=== PATIENT | female | born 1935 | race Caucasian/White ===

== ENCOUNTER 2023-01-15 09:28 | Observation (INO) | payer MEDICARE ==
[2023-01-15 10:32] LABS: Appearance Clear (Clear); Bilirubin Negative (Negative); Blood Small (Negative); Glucose, Urine Negative (Negative); Ketones Negative (Negative); Leukocyte Esterase Trace (Negative); Nitrite Negative (Negative); Protein,Urine Dip Negative (Negative); Urobilinogen 0.2 mg/dL (0.2)
[2023-01-15 10:32] LABS: Absolute Neutrophil Ct (ANC) 3.64 x10^3/uL (1.4-6.9); BASOPHIL % 1.9 % (0.0-0.4); Basophil (Absolute #) 0.13 x10^3/uL (0-0.4); Eosinophil % 4.8 % (0.00-5.0); Eosinophil (Absolute #) 0.33 x10^3/uL (0-0.5); Hematocrit 37.2 % (35-47); Hemoglobin 12.1 g/dL (12.0-16.0); IMMATURE GRAN # 0.03 x10^3u/L (0.00-0.03); IMMATURE GRAN % 0.4 % (0.00-0.4); Lymphocyte (Absolute #) 2.18 x10^3/uL (1.0-4.6); Mean Cell Volume 89.4 fL (78-100); Mean Corpuscular Hemoglobin 29.1 pg (26-32); Mean Corpuscular Hgb Concent. 32.5 g/dL (32-36); Mean Platelet Volume 10.8 fL (7.5-11.0); Monocytes % 7.3 % (0.0-12.0); Neutrophil % 53.6 % (36.0-66.0); Platelet Count 232 x10^3/uL (150-450); Red Blood Count 4.16 x10^6/uL (4.1-5.4); Red Cell Distribution Width 13.7 % (11.5-14.0); White Blood Count 6.8 x10^3/uL (4.0-10.5)
[2023-01-15 10:44] LABS: ALBUMIN 4.1 g/dL (3.5-5.0); ALKALINE PHOSPHATASE 71 U/L (38-126); BLOOD UREA NITROGEN 20 mg/dL (7-17); CHLORIDE 106 mmol/L (98-107); Calcium 9.2 mg/dL (8.4-10.2); Carbon Dioxide 25 mmol/L (22-30); Creatinine 1 0.87 mg/dL (0.52-1.04); EST GLOMERULAR FILTRATION RATE > 60.0 ML/MIN; Glucose 91 mg/dL (74-106); Potassium 4.3 mmol/L (3.5-5.1); SGOT/AST 21 U/L (14-36); SGPT/ALT 19 U/L (0-35); SODIUM 140 mmol/L (137-145); Total Protein 7.3 g/dL (6.3-8.2)
[2023-01-15 10:44] LABS: ADD URINE CULTURE? YES (NO); Bacteria Rare /HPF (None Seen); Epithelial Cells None Seen /HPF (None Seen); RBC 0-2 /HPF (0-5)
--- NOTE | 2023-01-15 11:35 | ERPHSYRPT ---
- History of Present Illness Time Seen by Provider: 01/15/23 10:00 Source: patient Exam Limitations: no limitations Patient Subjective Stated Complaint: C/O blood pressure fluctuations for the past few days. Denies pain or SOB. State B/P is high today and she has had some pounding/ringing in her ears. Triage Nursing Assessment: Patient ambulated back to ER without difficulties. She is alert and oriented. No SOB. NO cough. Skin tone normal. Bandaid noted to LL anterior leg; patient states she dropped something on it a few days ago. No edema noted. CLEARY WNL/ Physician History: Patient 37-year-old female presents to our ED for evaluation of fluctuating blood pressure and intermittent headache. Patient has not seen a primary care doctor in over 5 years. Patient's last doctor was Dr. Jordan Maria. Patient has not followed up with anybody since. No associated nausea vomiting or diaphoresis. No chest pain or shortness of breath. Patient does not take any medications to speak of. Patient states she takes [id number] magnesium. Daughter at bedside. They voiced no other complaints or concerns at this time. Portions of this note were created with voice recognition technology. There may be grammatical, spelling, punctuation or sound alike errors Timing/Duration: today Severity: moderate Modifying Factors: Improves With: nothing Associated Symptoms: denies symptoms Allergies/Adverse Reactions: erythromycin base [Erythromycin Base] Allergy (Verified 01/15/23 09:40) Sulfa (Sulfonamide Antibiotics) [Sulfa(Sulfonamide Antibiotics)] Allergy (Verified 01/15/23 09:40) Home Medications: Ibuprofen/Diphenhydramine Cit [Advil Pm Caplet] 2 tab PO HS 01/15/23 [History] Magnesium Oxide 400 mg [Mag-Ox 400] 1 tab PO HS 01/15/23 [History] Hx Tetanus, Diphtheria Vaccination/Date Given: Yes Hx Influenza Vaccination/Date Given: No Hx Pneumococcal Vaccination/Date Given: Yes Immunizations Up to Date: Yes Travel Risk - International Travel Have you traveled outside of the country in past 3 weeks: No - Coronavirus Screening Are you exhibiting any of the following symptoms?: No Close contact with a COVID-19 positive Pt in past 14-21 Days: No - Vaccine Status Have you recieved a Covid-19 vaccination: Yes Glass Sander: Moderna - Vaccination Dates Date of 2cond Vaccination (if applicable): ? - Review of Systems Constitutional: No Symptoms, No Fever, No Chills Eyes: No Symptoms Ears, Nose, & Throat: No Symptoms Respiratory: No Symptoms, No Cough, No Dyspnea Cardiac: No Symptoms, No Chest Pain, No Edema, No Syncope Abdominal/Gastrointestinal: No Symptoms, No Abdominal Pain, No Nausea, No Vomiting, No Diarrhea Genitourinary Symptoms: No Symptoms, No Dysuria Musculoskeletal: No Symptoms, No Back Pain, No Neck Pain Skin: No Symptoms, No Rash Neurological: No Symptoms, No Dizziness, No Focal Weakness, No Sensory Changes Psychological: No Symptoms Endocrine: No Symptoms Hematologic/Lymphatic: No Symptoms Immunological/Allergic: No Symptoms All Other Systems: Reviewed and Negative - Past Medical History Pertinent Past Medical History: Yes Neurological History: No Pertinent History ENT History: No Pertinent History Cardiac History: No Pertinent History Respiratory History: No Pertinent History Endocrine Medical History: Thyroid Cancer Musculoskeletal History: Osteoarthritis GI Medical History: Hemorrhoids Psycho-Social History: Other Female Reproductive Disorders: No Pertinent History Other Medical History: taken ativan 2mg at HS for 8 years "to help me sleep" - Past Surgical History Past Surgical History: Yes Neuro Surgical History: No Pertinent History Cardiac: No Pertinent History Gastrointestinal: No Pertinent History Genitourinary: No Pertinent History Female Surgical History: Hysterectomy Other Surgical History: Partial thyroidectomy - Social History Smoking Status: Never smoker Exposure to second hand smoke: No Drug Use: none Patient Lives Alone: No - Nursing Vital Signs Nursing Vital Signs: Initial Vital Signs Temperature 98 F 01/15/23 09:43 Pulse Rate 91 H 01/15/23 09:43 Respiratory Rate 18 01/15/23 09:43 Blood Pressure 201/76 01/15/23 09:43 O2 Sat by Pulse Oximetry 99 01/15/23 09:43 Pain Scale Pain Intensity 0 - Physical Exam General Appearance: no apparent distress, alert Eye Exam: PERRL/EOMI, eyes nml inspection Ears, Nose, Throat Exam: normal ENT inspection, TMs normal, pharynx normal, moist mucous membranes Neck Exam: normal inspection, non-tender, supple, full range of motion Respiratory Exam: normal breath sounds, lungs clear, airway intact, No respiratory distress Cardiovascular Exam: regular rate/rhythm, normal heart sounds, normal peripheral pulses Gastrointestinal/Abdomen Exam: soft, normal bowel sounds, No tenderness, No mass Back Exam: normal inspection, normal range of motion, No CVA tenderness, No vertebral tenderness Extremity Exam: normal inspection, normal range of motion, pelvis stable Neurologic Exam: alert, oriented x 3, cooperative, normal mood/affect, nml cerebellar function, nml station & gait, sensation nml, No motor deficits Skin Exam: normal color, warm, dry, No rash Lymphatic Exam: No adenopathy SpO2 Interpretation: normal SpO2: 100 O2 Delivery: Room Air - Course Nursing assessment & vital signs reviewed: Yes EKG Interpreted by Me: RATE (81, left bundle branch block T wave inversion), Sinus Rhythm, NORMAL AXIS, NORMAL INTERVALS, Left Bundle Branch Block Ordered Tests: Active Orders 24 hr Category Date Time Status CBC W DIFF Stat Lab 01/15/23 10:25 Completed CMP Stat Lab 01/15/23 10:25 Completed CULTURE,URINE Stat Lab 01/15/23 10:07 Received TROPONIN Q4H Lab 01/15/23 10:25 Completed TROPONIN Q4H Lab 01/15/23 14:15 Ordered TROPONIN Q4H Lab 01/15/23 18:15 Ordered TROPONIN Q4H Lab 01/15/23 22:15 Ordered UA W/RFX UR CULTURE Stat Lab 01/15/23 10:07 Completed Transfer Order Routine Transfer 01/15/23 Ordered Lab/Rad Data: Laboratory Result Diagrams 01/15/23 10:25 01/15/23 10:25 Laboratory Results 01/15/23 01/15/23 01/15/23 Range/Units 12:00 10:25 10:25 WBC (4.0-10.5) x10^3/uL RBC (4.1-5.4) x10^6/uL Hgb (12.0-16.0) g/dL Hct (35-47) % MCV (78-100) fL MCH (26-32) pg MCHC (32-36) g/dL RDW (11.5-14.0) % Plt Count (150-450) x10^3/uL MPV (7.5-11.0) fL Gran % (36.0-66.0) % Immature Gran % (Auto) (0.00-0.4) % Nucleat RBC Rel Count (0.00-0.1) % Eos # (Auto) (0-0.5) x10^3/uL Immature Gran # (Auto) (0.00-0.03) x10^3u/L Absolute Lymphs (auto) (1.0-4.6) x10^3/uL Absolute Monos (auto) (0.0-1.3) x10^3/uL Absolute Nucleated RBC (0.00-0.01) x10^3u/L Lymphocytes % (24.0-44.0) % Monocytes % (0.0-12.0) % Eosinophils % (0.00-5.0) % Basophils % (0.0-0.4) % Absolute Granulocytes (1.4-6.9) x10^3/uL Basophils # (0-0.4) x10^3/uL Sodium 140 (137-145) mmol/L Potassium 4.3 (3.5-5.1) mmol/L Chloride 106 (98-107) mmol/L Carbon Dioxide 25 (22-30) mmol/L Anion Gap 13.0 (5-15) MEQ/L BUN 20 H (7-17) mg/dL Creatinine 0.87 (0.52-1.04) mg/dL Estimated GFR > 60.0 ML/MIN Glucose 91 (74-106) mg/dL Calcium 9.2 (8.4-10.2) mg/dL Total Bilirubin 0.70 (0.2-1.3) mg/dL AST 21 (14-36) U/L ALT 19 (0-35) U/L Alkaline Phosphatase 71 (38-126) U/L Troponin I 0.021 (0.000-0.034) ng/mL Serum Total Protein 7.3 (6.3-8.2) g/dL Albumin 4.1 (3.5-5.0) g/dL Urine Color (Yellow) Urine Appearance (Clear) Urine pH (4.6-8.0) Ur Specific [place] (1.005-1.030) Urine Protein (Negative) Urine Glucose (UA) (Negative) mg/dL Urine Ketones (Negative) Urine Blood (Negative) Urine Nitrite (Negative) Urine Bilirubin (Negative) Urine Urobilinogen (0.2) mg/dL Ur Leukocyte Esterase (Negative) Urine Microscopic RBC (0-5) /HPF Urine Microscopic WBC (0-5) /HPF Ur Epithelial Cells (None Seen) /HPF Urine Bacteria (None Seen) /HPF Urine Culture Reflexed (NO) Influenza Type A Ag NEGATIVE (NEGATIVE) Influenza Type B Ag NEGATIVE (NEGATIVE) RSV (PCR) NEGATIVE (NEGATIVE) SARS-CoV-2 (PCR) NEGATIVE (NEGATIVE) 01/15/23 01/15/23 Range/Units 10:25 10:07 WBC 6.8 (4.0-10.5) x10^3/uL RBC 4.16 (4.1-5.4) x10^6/uL Hgb 12.1 (12.0-16.0) g/dL Hct 37.2 (35-47) % MCV 89.4 (78-100) fL MCH 29.1 (26-32) pg MCHC 32.5 (32-36) g/dL RDW 13.7 (11.5-14.0) % Plt Count 232 (150-450) x10^3/uL MPV 10.8 (7.5-11.0) fL Gran % 53.6 (36.0-66.0) % Immature Gran % (Auto) 0.4 (0.00-0.4) % Nucleat RBC Rel Count 0.0 (0.00-0.1) % Eos # (Auto) 0.33 (0-0.5) x10^3/uL Immature Gran # (Auto) 0.03 (0.00-0.03) x10^3u/L Absolute Lymphs (auto) 2.18 (1.0-4.6) x10^3/uL Absolute Monos (auto) 0.50 (0.0-1.3) x10^3/uL Absolute Nucleated RBC 0.00 (0.00-0.01) x10^3u/L Lymphocytes % 32.0 (24.0-44.0) % Monocytes % 7.3 (0.0-12.0) % Eosinophils % 4.8 (0.00-5.0) % Basophils % 1.9 (0.0-0.4) % Absolute Granulocytes 3.64 (1.4-6.9) x10^3/uL Basophils # 0.13 (0-0.4) x10^3/uL Sodium (137-145) mmol/L Potassium (3.5-5.1) mmol/L Chloride (98-107) mmol/L Carbon Dioxide (22-30) mmol/L Anion Gap (5-15) MEQ/L BUN (7-17) mg/dL Creatinine (0.52-1.04) mg/dL Estimated GFR ML/MIN Glucose (74-106) mg/dL Calcium (8.4-10.2) mg/dL Total Bilirubin (0.2-1.3) mg/dL AST (14-36) U/L ALT (0-35) U/L Alkaline Phosphatase (38-126) U/L Troponin I (0.000-0.034) ng/mL Serum Total Protein (6.3-8.2) g/dL Albumin (3.5-5.0) g/dL Urine Color Yellow (Yellow) Urine Appearance Clear (Clear) Urine pH 5.0 (4.6-8.0) Ur Specific [place] 1.010 (1.005-1.030) Urine Protein Negative (Negative) Urine Glucose (UA) Negative (Negative) mg/dL Urine Ketones Negative (Negative) Urine Blood Small A (Negative) Urine Nitrite Negative (Negative) Urine Bilirubin Negative (Negative) Urine Urobilinogen 0.2 (0.2) mg/dL Ur Leukocyte Esterase Trace A (Negative) Urine Microscopic RBC 0-2 (0-5) /HPF Urine Microscopic WBC 3-5 (0-5) /HPF Ur Epithelial Cells None Seen (None Seen) /HPF Urine Bacteria Rare A (None Seen) /HPF Urine Culture Reflexed YES (NO) Influenza Type A Ag (NEGATIVE) Influenza Type B Ag (NEGATIVE) RSV (PCR) (NEGATIVE) SARS-CoV-2 (PCR) (NEGATIVE) - Progress Progress: improved Progress Note: Patient is a 87-year-old female presents to our ED for evaluation of hypertension. Patient checked her blood pressure she felt pressure in her head and her ears. Patient has not seen a primary care doctor in over 5 years. Patient's last physician was Dr. Jordan Maria. Patient presents today with abnormal EKG which shows a left bundle branch block and T wave inversions. As far as we know these findings are new. Patient's last EKG was in 2011 which revealed a normal sinus rhythm with no such abnorma lities. Patient denies any significant past medical history. Patient's complaint is acute. Patient's neurologic exam is normal.. Plexi of problem addressed is moderate. The diagnosis is new with uncertain prognosis. Patient has high blood pressure with systemic manifestations of intermittent headache and ringing in her ears. Age gender, PMH/PQ , (co-morbidities that complicate presentation) , med class, PSH, (smoker) method of arrival, CC (acute, chronic or acute on chronic), State COPA level and why or if critical. vitals, Significant ROS/PE findings, working diagnoses, No critical care time. Complexity of data reviewed and analyzed is moderate. Patient served as independent historian however daughter at bedside provided significant information towards HPI. Test ordered and test reviewed. Case discussed with Dr. Quintana who accepts admission to observation. Patient inquired about Dr. Medina as she has family friends at recommend Dr. Medina. However we contacted Dr. Medina's office and Dr. Medina is not taking new patients at this time. Patient's troponin is within normal limits however elevated as compared to baseline. Risk of complication and or morbidity/mortality of patient management is minimal. Patient's blood pressure was observed. We did not administer medication for management. We will continue to observe blood pressure as it was steadily downtrending. Plan of care discussed with patient and her son who is at bedside. Patient's daughter left the room. Patient agrees to admission [facility] for further evaluation and treatment. Plan of care was achieved based on shared decision making model. She voices no other complaints or concerns at this time. Portions of this note were created with voice recognition technology. There may be grammatical, spelling, punctuation or sound alike errors 01/15/23 12:36 Counseled pt/family regarding: lab results, diagnosis, rad results - Departure Departure Disposition: Observation (hypertension) Clinical Impression: Hypertension, LBBB (left bundle branch block), Abnormal EKG Condition: Stable Critical Care Time: No Referrals: DOCTOR,NO FAMILY [Primary Care Provider] - Follow up/PCP as directed
[2023-01-15 12:22] LABS: INFLUENZA A NEGATIVE (NEGATIVE); INFLUENZA B NEGATIVE (NEGATIVE); RESPIRATORY SYNCTIAL VIRUS NEGATIVE (NEGATIVE); SARS-CoV-2 Xpert Express NEGATIVE (NEGATIVE)
[2023-01-15] MEDS ORDERED: Senokot-S Tablet PO PRN (12:43)
[2023-01-15] MEDS ORDERED: Zofran 4 MG/2 ML VIAL IV PRN (12:43)
[2023-01-15] MEDS ORDERED: MILK OF MAGNESIA 30 ML PO PRN (12:43)
[2023-01-15] MEDS ORDERED: TYLENOL 325 MG PO PRN (12:43)
[2023-01-15] MEDS ORDERED: MAALOX ES 30 ML UNIT DOSE PO PRN (12:43)
[2023-01-15] MEDS: APRESOLINE 20 MG/ML INJ IV PRN (18:48)
[2023-01-15] MEDS: MAG-OX 400 PO SCH (23:24)
[2023-01-16 06:19] LABS: Risk Ratio 7.1
[2023-01-16] MEDS: APRESOLINE 20 MG/ML INJ IV PRN (06:44)
[2023-01-16] MEDS ORDERED: BENADRYL 25 MG CAPSULE PO PRN (12:11)
[2023-01-16] MEDS: NORVASC 5 MG PO SCH (12:54)
--- NOTE | 2023-01-16 14:53 | PCM.HP ---
History of Present Illness - Chief Complaint Chief Complaint: ACS, abnormal EKG History of Present Illness: is a 87 year old female with no MD whatsoever who was admitted through ER with Hypertensive emergency and EKG changes. Workup to r/o WI was started. Her BP was >210 systolic initially. Troponins have been neg x 3. EKG had new LBBB compared with last EKG (from 2011). She was most recently a pt of Dr. Jordan Morrison, about 5 years ago, and hasn't been seen by a doctor since then. She started having pressure in her head and ringing in her ears the past 2-3d; BP have been up and down since then (133/50-178/80-90, she says). Apparently she took a BP med about 20 yrs ago but her bp improved and she stopped it. She has required IV hydralazine x2 since admission, for BP > 180 systolic. She lives with her son, daughter, and granddaughter. Still drives, does her own cooking and checkbook. - Review of Systems Cardiac: Edema (occ, LE) Neurological: Headache, Other (tinnitus) Psychological: Anxiety All Other Systems: Reviewed and Negative Medications & Allergies Home Medications: Home Medication List Ibuprofen/Diphenhydramine Cit [Advil Pm Caplet] 2 tab PO HS 01/15/23 [History Confirmed 01/15/23] Magnesium Oxide 400 mg [Mag-Ox 400] 1 tab PO HS 01/15/23 [History Confirmed 01/15/23] Allergies/Adverse Reactions: Allergies Allergy/AdvReac Type Severity Reaction Status Date / Time erythromycin base Allergy Verified 01/15/23 09:40 [Erythromycin Base] Sulfa (Sulfonamide Allergy Verified 01/15/23 09:40 Antibiotics) [Sulfa(Sulfonamide Antibiotics)] - Past Medical History Past Medical History: Yes Neurological History: No Pertinent History ENT History: No Pertinent History Cardiac History: Hypertension Respiratory History: No Pertinent History Endocrine Medical History: Thyroid Cancer Musculoskelatal History: Osteoarthritis GI Medical History: Hemorrhoids Pyscho-Social History: Other Reproductive Disorders: No Pertinent History, Other Comment: Cervical pre-cancer - Female History Hx Last Menstrual Period: POST Are you now?: No - Past Surgical History Past Surgical History: Yes Neuro Surgical History: No Pertinent History Cardiac History: No Pertinent History GI Surgical History: No Pertinent History Genitourinary Surgical Hx: No Pertinent History Female Surgical History: Hysterectomy Other Surgical History: Partial thyroidectomy - Social History Smoking Status: Never smoker Exposure to second hand smoke: No Alcohol: Rarely Drug Use: none - Physical Exam Vital Signs: Vital Signs - 24 hr Temp Pulse Resp BP Pulse Ox 01/16/23 11:30 98.1 F 85 16 152/67 98 01/16/23 08:13 86 124/59 01/16/23 07:33 98.3 F 72 16 184/76 96 01/16/23 04:00 98.1 F 68 17 147/65 97 01/16/23 00:00 98.2 F 88 17 131/63 96 01/15/23 21:00 134/60 01/15/23 19:57 97.8 F 80 17 168/67 97 01/15/23 16:00 98.0 F 74 16 143/66 99 01/15/23 15:26 72 165/72 General Appearance: no apparent distress, alert Neurologic Exam: oriented x 3, cooperative, normal mood/affect Eye Exam: eyes nml inspection Ears, Nose, Throat Exam: moist mucous membranes Neck Exam: normal inspection, non-tender, No lymphadenopathy, No subcutaneous emphysema, No thyromegaly Respiratory Exam: normal breath sounds, lungs clear, No crackles/rales, No rhonchi, No wheezing Cardiovascular Exam: regular rate/rhythm, normal heart sounds, No murmur Gastrointestinal/Abdomen Exam: soft, normal bowel sounds, No tenderness, No distention, No mass, No guarding, No rebound Back Exam: normal inspection, No CVA tenderness, No rash Extremity Exam: normal inspection Skin Exam: normal color, warm, dry, No rash Results - Labs Lab/Micro Results: Lab Results-Last 24 Hours 01/15/23 01/15/23 01/16/23 Range/Units 14:29 18:00 04:02 Troponin I 0.022 0.025 (0.000-0.034) ng/mL Triglycerides 386 H (30-150) mg/dL Cholesterol 346 H (50-200) mg/dL LDL Cholesterol 135 H (30-100) mg/dL HDL Cholesterol 49 (40-60) mg/dL Heart Disease Risk Ratio 7.1 - Other Procedures and Tests Respiratory Therapy 01/17/23 05:00 EKG ONCE 01/18/23 05:00 EKG ONCE Assessment/Plan (1) Hypertensive emergency Current Visit: Yes Status: Acute Assessment & Plan: Resolved. Hydralazine prn. Code(s): I16.1 - HYPERTENSIVE EMERGENCY (2) Hypertension Current Visit: Yes Status: Acute Qualifiers: Hypertension type: primary hypertension Qualified Code(s): I10 - Essential (primary) hypertension Assessment & Plan: Started pt on amlodipine 5mg po daily; likely home in the morning. Code(s): I10 - ESSENTIAL (PRIMARY) HYPERTENSION (3) LBBB (left bundle branch block) Current Visit: Yes Status: Acute Assessment & Plan: Needs OP f/u with supervisor heat treating. Code(s): I44.7 - LEFT BUNDLE-BRANCH BLOCK, UNSPECIFIED (4) Hyperlipidemia Current Visit: Yes Status: Acute Qualifiers: Hyperlipidemia type: mixed hyperlipidemia Qualified Code(s): E78.2 - Mixed hyperlipidemia Assessment & Plan: Quite high, but we did not discuss and as statins haven't been studied in her age group, would have to discuss possible risk v benefit. Code(s): E78.5 - HYPERLIPIDEMIA, UNSPECIFIED
[2023-01-16] MEDS: MAG-OX 400 PO SCH (22:41)
[2023-01-17] MEDS: NORVASC 5 MG PO SCH (08:55)
[2023-01-17 11:39] VITALS: BP 116/55; PULSE 75; O2SAT 96
--- NOTE | 2023-01-17 11:44 | PCM.DCORD ---
- Discharge Disposition: Home, Self-Care Condition: Stable Prescriptions: New Cefuroxime Axetil 500 mg [Ceftin 500 mg] 0 mg PO BID #14 tablet Amlodipine Besylate 5 mg [Norvasc 5 mg] 0 mg PO DAILY #30 tablet Continue Magnesium Oxide 400 mg [Mag-Ox 400] 1 tab PO HS Ibuprofen/Diphenhydramine Cit [Advil Pm Caplet] 2 tab PO HS Follow up with: BRANDON QUIJANO [CONSULTING PHYSICIAN] - ALIRIO MORRISON [ACTIVE STAFF] - 01/27/23 11:15 am
[2023-01-17] MEDS ORDERED: ROCEPHIN 1 Gm-D5w 50 ml Bag** 1 G/50 ML IVPB IV ONE (11:50)
[2023-01-17] MEDS: ROCEPHIN 1 Gm-D5w 50 ml Bag** 1 G/50 ML IVPB IV ONE ×2 (11:55→12:06)
== END 2023-01-17 13:41 | disposition home or self-care (01) ==
LOC: ED 09:28 → MED SURG 12:40
PROVIDERS: ADMIT Family Medicine; ATTEND Family Medicine
DX: I16.1 Hypertensive emergency (principal); I10 Essential (primary) hypertension; I44.7 Left bundle-branch block, unspecified; E78.2 Mixed hyperlipidemia; E78.5 Hyperlipidemia, unspecified; Z85.850 Personal history of malignant neoplasm of thyroid; Z20.828 Contact with and (suspected) exposure to other viral communicable diseases
CPT/HCPCS: 0241U; 36415; 80053; 80061; 81001; 83721; 84484; 85025; 87077; 87086; 87186; 93005; 93268; 99285; G0378; J0360; J0696; A9270-GY

== ENCOUNTER 2025-09-08 15:46 | Emergency (ER) | payer MEDICARE ==
--- NOTE | 2025-09-08 16:09 | XRAY ---
Indication: Headache. Dizziness. Multiple contiguous axial images obtained through the head without contrast. Comparison: None Age-appropriate global atrophy, minimal periventricular degenerative microischemia bilaterally, and remote lacunar infarct right basal ganglia. No acute intracranial hemorrhage, abnormal extra-axial fluid collection, or mass effect. 4th ventricle is midline without hydrocephalus. Mayberry-white matter differentiation preserved. Bony calvarium intact. Visualized paranasal sinuses and mastoid air cells are clear. 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
--- NOTE | 2025-09-08 16:31 | ERPHSYRPT ---
- History of Present Illness Time Seen by Provider: 09/08/25 16:01 Source: patient, family Patient Subjective Stated Complaint: PT STATED SHE COULD NOT GET THE RIGHT WORDS OUT Triage Nursing Assessment: PT ARRIVES TO THE ED VIA PRIVATE VEHICLE WITH FAMILY. PT ABLE TO AMBULATE INTO THE ED AND ONTO THE ED COT BY HERSELF WITHOUT DIFFICULTY. PT ALERT AND ORIENTED X4, NO SIGNS OF RESPIRATORY DISTRESS, PULSES EQUAL BILATERALLY. PT STATES THAT AT 1445 TODAY SHE STARTED TO NOT BE ABLE TO GET THE WORDS SHE WANTED TO SAY OUT AND THAT EVERYTHING WAS JUMBLED. PT STATES THIS LASTED ABOUT 30 MINUTES AND THEN SHE WAS FINE AGAIN. AFTER ABOUT 10 MINUTES SHE WAS BACK TO NOT BEING ABLE TO GET THE CORRECT WORDS OUT AGAIN. PT STATES SHE IS NOT DIABETIC BUT WAS LIGHTHEADED, BUT SHE THINKS ITS BECAUSE SHE HAS NOT EATEN TODAY. PT IS ABLE TO ANSWER QUESTIONS CORRECTLY AND ALSO ABLE TO KEEP CONCENTRATION. PT WAS GIVEN 2 ASA BY FAMILY AT 1520. PT AND FAMILY ARE UNAWARE OF THE DOSAGE. PT DENIES ANY Sob, CHEST PAIN, N/V/D, TINGLING. Physician History: CC: trouble speaking earlier HPI: history from nursing triage notes, patient, family Ms. Mendoza noted "I could'nt get the right words out of my mouth" earlier today. Daughter notes that there was. That they were having their usual family discussion. For about 10 to 15 minutes patient was having difficulty and was saying nonsensical words then seem to improve for about 10 minutes or a short break as her daughter describes. At that time she did take an additional dose of aspirin and this seemed to help. However she had recurrence of the symptoms lasting about 10 to 15 minutes again and then resolved. Because of the repeat episode she was brought to the ER for further evaluation. She has not had an additional episode. She has not had episode like this before. She is not having any chest pain or palpitations. She does note having history of tinnitus and this can exacerbate periodically. She did have an exacerbation earlier today. I ask if she has had Mnire's disease and she is not familiar with that particular term neither is the daughter. She has not been ill recently. She did not faint She is not having a headache She is not had prior stroke _ lives at home non smoker Pulseox: 95 % on RA normal ROS Const: No fever, chills, sweats. No weakness / malaise at this time. HEENT: No sore throat, runny nose, congestion, ear ache. CV: No chest pain, palpitations, shortness of breath, cough. No edema to the ankles / legs. Abdom: No nausea, vomiting, diarrhea, or constipation. No abdominal pain. : No dysuria, frequency, or odor. Skin: no unusual rashes. Heme: No unusual bruising or bleeding. Lymph: No swelling to glands. Neuro: No headache, dizziness, numbness. No hemoptysis, hematemesis, hematochezia, hematuria. Allergies/Adverse Reactions: erythromycin base [Erythromycin Base] Allergy (Verified 09/08/25 15:51) Sulfa (Sulfonamide Antibiotics) [Sulfa(Sulfonamide Antibiotics)] Allergy (Verified 09/08/25 15:51) Home Medications: Ibuprofen/Diphenhydramine Cit [Advil Pm 200-38 mg Caplet] 2 tab PO HS 01/15/23 [History] Magnesium Oxide 400 mg [Mag-Ox 400] 1 tab PO HS 01/15/23 [History] Cyanocobalamin 1000 Mcg/ml [Cyanocobalamin B-12 1000 MCG/ML] 1 ml IM DIRECTIONS UNKNOWN 09/08/25 [History] Hx Tetanus, Diphtheria Vaccination/Date Given: (UNKNOWN) Hx Influenza Vaccination/Date Given: No Hx Pneumococcal Vaccination/Date Given: No Immunizations Up to Date: Yes Travel Risk - International Travel Have you traveled outside of the country in past 3 weeks: No - Emerging Infectious Disease Are you exhibiting symptoms associated with any current EIDs: No - Past Medical History Pertinent Past Medical History: Yes Neurological History: No Pertinent History ENT History: No Pertinent History Cardiac History: Hypertension Respiratory History: No Pertinent History Endocrine Medical History: Thyroid Cancer Musculoskeletal History: Osteoarthritis GI Medical History: Hemorrhoids History: No Pertinent History Psycho-Social History: Other Female Reproductive Disorders: No Pertinent History, Other Other Medical History: Cervical pre-cancer, BUNDLE BRANCH BLOCK - Past Surgical History Past Surgical History: Yes Neuro Surgical History: No Pertinent History Cardiac: No Pertinent History Respiratory: No Pertinent History Gastrointestinal: No Pertinent History Genitourinary: No Pertinent History Musculoskeletal: No Pertinent History Female Surgical History: Hysterectomy Other Surgical History: Partial thyroidectomy - Social History Smoking Status: Never smoker Exposure to second hand smoke: Yes Drug Use: none - Social Determinants of Health Will the patient participate in the screening: Yes Do you worry about a steady place to live?: No Do you have any problems with any of the following?: No known problems In the past 12 months,have you had to go without utilities?: No Transportation Issues: No Has anyone in your support network made you feel unsafe?: No Have you or anyone in your house had to go w/o enough food: No - Nursing Vital Signs Nursing Vital Signs: Initial Vital Signs Temperature 98.8 F 09/08/25 15:50 Pulse Rate 95 H 09/08/25 15:50 Respiratory Rate 16 09/08/25 15:50 Blood Pressure 178/75 09/08/25 15:50 O2 Sat by Pulse Oximetry 99 09/08/25 15:50 Pain Scale Pain Intensity 0 - Physical Exam SpO2 Interpretation: normal SpO2: 99 O2 Delivery: Room Air Comments: Pt appears to be in no physiologic distress. Pt has nopain distress. Nontoxic. Pleasant. A&O x 4. Activity: at this time patient is semireclined in the ER bed Head: Normocephalic, atraumatic. Eyes: EOMI, no nystagmus. Nonicteric, no injection. Conjunctiva clear. CARIE to both light and direct confrontation, fundi benign. Pupils 2-3 mm, symmetric. She has bilateral arcus senilis in the upper portion of the cornea Throat: Moist mucous membranes. Symmetric rise of palate. No pharynx erythema. No tonsil enlargement, exudates, or erythema. Neck: Supple, nontender ROM. Negative Kernig. Lymph: No cervical or supraclavicular lymphadopathy. Lungs: CTA, nl effort, no rales, rhonchi, crackles, wheezes. Normal resonance on percussion. Cough _clear . Cardiac: RRR S1, S2, without murmur or rub. Posterior tibial, pedal pulses 2/4 bilaterally. No ankle or pretibial edema. Neuro: no facial droop / asymmetry. CN 2-12 grossly intact. Moves all extremities. Normal speech phonation. Neuro: DTR 1-2/4 upper and lower extremities bilaterally. No ankle clonus. No pronator drift. Abdom: Bowel sounds present and active x 4Quadrants. Normal tympany to percussion. Soft. Nondistended. Nontender, no masses or organomegaly. No rebound, rigidity, or guarding. Nonsurgical. No pulsatile masses. Extremities: warm, well perfused. Negative Joni's sign. No calf asymmetry grossly. Skin: Warm, dry, normal turgor. Good color. No rashes grossly. Mild skin atrophy Back: No pain on percussion. Nontender. No muscle spasm. Mild kyphosis. - Course Nursing assessment & vital signs reviewed: Yes EKG Interpreted by Me: Other (1744 EKG with normal sinus rhythm rate 92, left bundle branch block with CO 0.20-0.22, QRS 0.080.12, left axis deviation and poor R wave progression are noted. Comparison EKG is 01/15/2023 with lead placement changes. No STEMI. Abnormal but stable EKG. -- Thompson Orta) Ordered Tests: Active Orders 24 hr Category Date Time Status EKG-ER Only STAT Care 09/08/25 17:11 Active IV Insertion STAT Care 09/08/25 17:11 Active NPO (ED) STAT Care 09/08/25 17:12 Active POCT Glucose Check ONCE Care 09/08/25 17:11 Active Pulse Oximetry (ED) STAT Care 09/08/25 17:11 Completed Re-Check Vital Signs STAT Care 09/08/25 17:11 Active CHEST 2 VIEWS (PA AND LAT) Stat Exams 09/08/25 17:12 Taken HEAD WITHOUT CONTRAST [CT] Stat Exams 09/08/25 15:51 Completed BMP Stat Lab 09/08/25 16:30 Completed CBC W DIFF Stat Lab 09/08/25 16:30 Completed PROCALCITONIN Stat Lab 09/08/25 16:30 Completed TROPONIN Stat Lab 09/08/25 16:30 Completed UA W/RFX UR CULTURE Stat Lab 09/08/25 19:19 Received Lab/Rad Data: Laboratory Result Diagrams 09/08/25 16:30 09/08/25 16:30 Laboratory Results 09/08/25 09/08/25 09/08/25 Range/Units 16:30 16:30 16:30 WBC (3.98-10.04) x10^3/uL RBC (3.93-5.22) x10^6/uL Hgb (11.2-15.7) g/dL Hct (34.1-44.9) % MCV (79.4-94.8) fL MCH (25.6-32.2) pg MCHC (32.2-35.5) g/dL RDW (11.7-14.4) % Plt Count (182-369) x10^3/uL MPV (9.4-12.3) fL Gran % (34.0-71.1) % Immature Gran % (Auto) (0.001-0.429) % Nucleat RBC Rel Count (0.00-0.2) % Eos # (Auto) (0.04-0.36) x10^3/uL Immature Gran # (Auto) (0.001-0.031) x10^3u/L Absolute Lymphs (auto) (1.18-3.74) x10^3/uL Absolute Monos (auto) (0.24-0.86) x10^3/uL Absolute Nucleated RBC (0.00-0.012) x10^3u/L Lymphocytes % (19.3-51.7) % Monocytes % (4.7-12.5) % Eosinophils % (0.7-5.8) % Basophils % (0.1-1.2) % Absolute Granulocytes (1.56-6.13) x10^3/uL Basophils # (0.01-0.08) x10^3/uL Sodium 135 (135-145) mmol/L Potassium 4.0 (3.5-5.1) mmol/L Chloride 105 (98-107) mmol/L Carbon Dioxide 21 L (22-30) mmol/L Anion Gap 12.8 (5-15) MEQ/L BUN 18 H (7-17) mg/dL Creatinine 1.10 H (0.52-1.04) mg/dL Estimated GFR 48.0 ML/MIN Glucose 103 (74-106) mg/dL Calcium 9.1 (8.4-10.2) mg/dL Troponin I < 0.012 (0.000-0.033) ng/mL Procalcitonin 0.164 H (0.030-0.080) ng/mL 09/08/25 Range/Units 16:30 WBC 9.6 (3.98-10.04) x10^3/uL RBC 2.55 L (3.93-5.22) x10^6/uL Hgb 8.4 L (11.2-15.7) g/dL Hct 25.0 L (34.1-44.9) % MCV 98.0 H (79.4-94.8) fL MCH 32.9 H (25.6-32.2) pg MCHC 33.6 (32.2-35.5) g/dL RDW 18.0 H (11.7-14.4) % Plt Count 378 H (182-369) x10^3/uL MPV 10.3 (9.4-12.3) fL Gran % 40.4 (34.0-71.1) % Immature Gran % (Auto) 0.7 H (0.001-0.429) % Nucleat RBC Rel Count 0.0 (0.00-0.2) % Eos # (Auto) 0.33 (0.04-0.36) x10^3/uL Immature Gran # (Auto) 0.07 H (0.001-0.031) x10^3u/L Absolute Lymphs (auto) 4.55 H (1.18-3.74) x10^3/uL Absolute Monos (auto) 0.60 (0.24-0.86) x10^3/uL Absolute Nucleated RBC 0.00 (0.00-0.012) x10^3u/L Lymphocytes % 47.5 (19.3-51.7) % Monocytes % 6.3 (4.7-12.5) % Eosinophils % 3.4 (0.7-5.8) % Basophils % 1.7 H (0.1-1.2) % Absolute Granulocytes 3.87 (1.56-6.13) x10^3/uL Basophils # 0.16 H (0.01-0.08) x10^3/uL Sodium (135-145) mmol/L Potassium (3.5-5.1) mmol/L Chloride (98-107) mmol/L Carbon Dioxide (22-30) mmol/L Anion Gap (5-15) MEQ/L BUN (7-17) mg/dL Creatinine (0.52-1.04) mg/dL Estimated GFR ML/MIN Glucose (74-106) mg/dL Calcium (8.4-10.2) mg/dL Troponin I (0.000-0.033) ng/mL Procalcitonin (0.030-0.080) ng/mL - Progress Progress: improved Progress Note: 09/08/25 17:08 She has been normal for a period of time now and I have reviewed her CT I do not identify any focal large stroke or intracranial hemorrhage. Await final radiology result. At this time we will complete screening with an EKG as well as chest x-ray and urinalysis. Because of the atypia see of her symptoms I will also complete a prolactin and an electrolyte panel. I will reevaluate and then make determination if she needs hospital evaluation or not. Her symptomotolgy was consistent with a Broca's type aphasic process which is resolved at this time. ABCD2 score 09/08/25 19:13 Transient altered mental status :: No free air under the diaphragm nonspecific bowel gas pattern. Good inspiratory effort. No cardiomegaly. No large pneumothorax or infiltrate identified. No significant pulmonary edema or cephalization pattern. No large bony fracture or dislocation identified. She does have chronic changes identified. She does have some arthritic/degenerative changes noted as well.-- Thompson Orta 09/08/25 20:13 Hgb 8.4 (pt on B12) Her ABCD2 score is 4-5 pending on how the recurrence and break of her aphasic process is calculated. This places her at moderate risk. Urinalysis will be pending as there has been some confusion and lab about the samples that were sent. Call to discuss with the telehospitalist 09/08/25 20:[address] Pa (hospitalist director community organization) We have reviewed her presentation as well as the prior episode 3 to 4 months ago and the evidence for old lacunar stroke (daughter noted that her brother noted similar episode as today about 3-4 months ago). He notes that neurology consultation is indicated. He would like to have MRI completed in the morning in addition to the ultrasound/vascular studies. We have discussed the possibility the MRI may not be available and this prompts request for teleneurology consultation to determine if patient needs MRI tomorrow or if patient may meet criteria for delay in MRI until Thursday. If patient requires MRI in an expedited manner in the next 24 to 48 hours then patient will need to be transferred. 2034 have discussed with patient and family the need for the teleneurology evaluation. They are agreeable. We have discussed that if she has need for MRI over the weekend then she will need to be transferred otherwise she will be in the hospital here. Family and patient are agreeable with the plan for admission 09/08/25 21:09 Teleneurology has recommended MRI/MRI expedited and this service is not available on the weekends at [facility]. Plan will be for transfer. Patient would prefer to go to [place] and if not [place] and then [place], with the system. 09/08/25 21:18 No bed availability @ [facility]. Call to the transfer center. [id number] Marie Hale ( Neurology director community organization) Reviewed the presentation the testing results and the teleneurology recommendation. Also that [place] does not have the MRI and the weekends and local hospital at [place] does not have the staffing. Dr. Hale accepts as ER to ER transfer at [facility]. Further evaluation will occur at [facility] in the ER. We do discuss the recommendation by the teleneurologist to initiate dual antiplatelet therapy with the addition of the clopidogrel 300 mg load at this time and she is agreeable with this to start in ER prior to transfer. Patient has already had aspirin earlier today and therefore I will not initiate any additional aspirin. Patient will need additional testing and screening but this will be arranged and managed through the [facility] neurology stroke service. Discussed with Dr.: Tele-Hospitalist, Tele-Neurologist, Other (Dr. Marie Hale ([facility]). ER-ER transfer accepted.) - Departure Departure Disposition: Transfer Clinical Impression: TIA (transient ischemic attack), Aphasia, Anemia, LBBB (left bundle branch block), Old lacunar stroke without late effect Condition: Fair Critical Care Time: No Referrals: JOSE EDUARDO GONSALES DO [[facility] - Follow up/PCP as directed
[2025-09-08 17:17] LABS: BASOPHIL % 1.7 % (0.1-1.2); Basophil (Absolute #) 0.16 x10^3/uL (0.01-0.08); Eosinophil (Absolute #) 0.33 x10^3/uL (0.04-0.36); Hematocrit 25.0 % (34.1-44.9); Hemoglobin 8.4 g/dL (11.2-15.7); IMMATURE GRAN # 0.07 x10^3u/L (0.001-0.031); IMMATURE GRAN % 0.7 % (0.001-0.429); Lymphocyte (Absolute #) 4.55 x10^3/uL (1.18-3.74); Mean Corpuscular Hemoglobin 32.9 pg (25.6-32.2); Mean Corpuscular Hgb Concent. 33.6 g/dL (32.2-35.5); Monocyte (Absolute #) 0.60 x10^3/uL (0.24-0.86); NUCLEATED RBC # 0.00 x10^3u/L (0.00-0.012); NUCLEATED RBC % 0.0 % (0.00-0.2); Platelet Count 378 x10^3/uL (182-369); Red Blood Count 2.55 x10^6/uL (3.93-5.22); White Blood Count 9.6 x10^3/uL (3.98-10.04)
[2025-09-08 17:23] LABS: Calcium 9.1 mg/dL (8.4-10.2); Carbon Dioxide 21.0 mmol/L (22-30); Creatinine 1 1.1 mg/dL (0.52-1.04); EST GLOMERULAR FILTRATION RATE 48.0 ML/MIN; Glucose 103.0 mg/dL (74-106); Potassium 4.0 mmol/L (3.5-5.1)
[2025-09-08 21:20] LABS: Glucose, Urine Negative (Negative); Protein,Urine Dip Negative (Negative); RBC 0-2 /HPF (0-5); WBC 0-2 /HPF (0-5)
[2025-09-08] MEDS ORDERED: PROTONIX 40 MG IV IV ONE (21:57)
[2025-09-08] MEDS ORDERED: PLAVIX Tablet ONE (21:57)
[2025-09-08] MEDS: PROTONIX 40 MG IV IV ONE (21:58)
[2025-09-08] MEDS: PLAVIX Tablet PO ONE (21:59)
[2025-09-08 23:46] VITALS: PULSE 75
[2025-09-09 00:05] VITALS: BP 165/61; RESP 15; TEMP 98.4; O2SAT 99
--- NOTE | 2025-09-09 07:31 | XRAY ---
Indication: TIA. Trouble speaking. Hypertension. Comparison: None PA/lateral chest demonstrates COPD. Left midlung demonstrates CT proven calcified granuloma. No focal infiltrate, consolidation, or large effusion. Heart not enlarged. Bony thorax intact with osteopenia and mild degenerative changes. Impression: Nonacute chest with chronic features.
== END 2025-09-09 00:26 | disposition short-term general hospital (02) ==
LOC: ED 15:46
DX: G45.9 Transient cerebral ischemic attack, unspecified (principal); R47.01 Aphasia; D64.9 Anemia, unspecified; I44.7 Left bundle-branch block, unspecified; Z86.73 Personal history of transient ischemic attack (TIA), and cerebral infarction without residual deficits; I10 Essential (primary) hypertension; Z79.899 Other long term (current) drug therapy